=== PATIENT | female | born 1990 | race Hispanic/Latino ===

== ENCOUNTER 2019-08-29 00:33 | Emergency (ER) | payer SELFPAY ==
[2019-08-29 01:44] LABS: #Basophils 0.1 thou/uL (0.0-0.2); #Eosinphils 0.2 thou/uL (0.0-0.7); #Lymphocytes 2.9 thou/uL (1.20-3.40); #Monocytes 1.1 thou/uL (0.11-0.59); #Neutrophils 8.8 thou/uL (1.40-6.50); %Basophils 0.5 % (0.0-1.0); %Eosinophils 1.9 % (0.0-10.0); %Lymphocytes 22.4 % (21.0-51.0); %Monocytes 8.1 % (0.0-10.0); %Neutrophils 67.2 % (42.0-75.0); Hemoglobin 14.4 g/dL (12.0-16.0); Mean Corpuscular Hemoglobin 33.5 pg (27.0-31.0); Mean Corpuscular Volume 98.5 fL (78.0-98.0); Mean Platelet Volume 8.7 fL (7.4-10.4); Platelet Count 215 thou/uL (130-400); RBC Distribution Width 11.5 % (11.5-14.5); White Blood Cell (WBC) Count 13.1 thou/uL (4.8-10.8)
[2019-08-29] MEDS ORDERED: Morphine 4 MG/ML VIAL ONE (03:17)
[2019-08-29] MEDS ORDERED: Ondansetron PF 4 MG/2 ML Vial ONE (03:17)
--- NOTE | 2019-08-29 07:53 | ULT ---
PRELIMINARY REPORT/[facility]/AFTER HOURS PROCEDURE COMPLETE OBSTETRICAL ULTRASOUND <14 WEEKS: CLINICAL HISTORY: Heavy vaginal bleeding at 3 months . See notes on last image. Thanks. TECHNIQUE: Transabdominal imaging of the maternal pelvis and a <14 week gestation with image documentation. COMPARISON: None provided. FINDINGS GESTATION: A 6.1 x 1.1 cm cystic structure is noted in the lower uterine segment, possibly a gestatio nal sac and a vascular focus in this region may represent a portion of retained placenta. UTERUS: Unremarkable. No myometrial mass. Measures 10.6 x 5.3 x 6.1 cm. CERVIX: Closed. Unremarkable. OVARIES: Unremarkable. No mass. The RIGHT side measures 2.3 x 1.8 x 1.7 cm and the LEFT side measure s 2.2 x 1.0 x 1.9 cm. FREE FLUID: No free fluid. IMPRESSION: Possible lower uterine segment gestational sac with retained placenta however there is no evidence fo r pole or heartbeat. ELECTRONICALLY SIGNED BY: Tulio Marin MD Aug 29, 2019 2:34:35 AM CDT This report is intended for review by the ordering physician only, in accordance of law. If you recei ve this report in error, please call [facility] at [phone]. FINAL REPORT EMERGENT AFTER HOURS PELVIC ULTRASOUND: FINDINGS/IMPRESSION: I agree with the findings and impression given in the preliminary report per the [facility] phy sician. There is a gestational sac within the uterus which does not contain a pole. There is a question able area of retained placenta. CODE QA POS: ERWIN
== END 2019-08-29 04:10 | disposition home or self-care (01) ==
LOC: ERS 00:33
DX: O20.0 Threatened abortion (principal); Z3A.13 13 weeks gestation of pregnancy
CPT/HCPCS: 36415; 76856; 84702; 85025; 86900; 86901; 96374; 96375; J2270; J2405